=== PATIENT | female | born 1945 | race Caucasian/White ===

== ENCOUNTER 2024-01-22 07:46 | Emergency (ER) | payer OTHER ==
[~2024-01-22] VITALS: Ht 152.4 cm; Wt 49.9 kg
[~2024-01-22 07:46] MED LIST: HYDR-3917 PO; HYDR-3927 PO; ONDA-8 TL
[2024-01-22 07:55] VITALS: BP_SYST 179; PULSE 89; RESP 18; TEMP 98; O2SAT 99
[2024-01-22 08:15] LABS: BASOPHILS % (AUTO) 0.5 % (0.0-2.0); EOSINOPHILS % (AUTO) 0.5 % (0.0-4.0); HEMATOCRIT 38.5 % (36-48); HEMOGLOBIN 13.2 g/dL (12.0-16.0); LYMPHOCYTES # (AUTO) 1.2 K/uL (1.0-5.5); LYMPHOCYTES % (AUTO) 17.3 % (20.5-51.5); MEAN CORPUSCULAR HEMOGLOBIN 30 pg (27-31); MEAN CORPUSCULAR HGB CONC 34 % (32-36); MEAN CORPUSCULAR VOLUME 88 fL (79.0-98.0); MONOCYTES # (AUTO) 0.4 K/uL (0.0-1.0); MONOCYTES % (AUTO) 5.6 % (1.7-9.3); NEUTROPHILS # (AUTO) 5.2 K/uL (1.8-7.7); NEUTROPHILS % (AUTO) 76.1 % (40.0-70.0); PLATELET COUNT (AUTO) 434 K/uL (130-430); RED BLOOD CELL COUNT(AUTO) 4.39 MIL/uL (4.2-6.2); RED CELL DISTRIBUTION WIDTH 14.5 % (9.0-15.0); WHITE BLOOD COUNT (AUTO) 6.9 K/uL (4.8-10.8)
[2024-01-22 08:47] LABS: BILIRUBIN,URINE NEGATIVE (NEGATIVE); BLOOD, URINE NEGATIVE (NEGATIVE); CLARITY/URINE CLEAR (CLEAR); COLOR,URINE YELLOW (YELLOW); GLUCOSE,URINE NEGATIVE (NEGATIVE); KETONES,URINE NEGATIVE (NEGATIVE); LEUKOCYTE ESTERASE ,URINE NEGATIVE (NEGATIVE); NITRITE, URINE NEGATIVE (NEGATIVE); PH,URINE 7.5 (5.0-8.0); PROTEIN URINE 2+ (NEGATIVE); UROBILINOGEN,URINE 0.2 (0.2-1.0)
[2024-01-22 09:01] LABS: BACTERIA,URINE FEW /HPF (None Seen); RBC,URINE NONE SEEN /HPF (0-3); WBC,URINE 0-3 /HPF (0-3)
[2024-01-22 09:04] LABS: PROTHROMBIN TIME 10.6 SECS (9.5-12.5)
[2024-01-22 09:12] LABS: ALANINE AMINOTRANSFERASE 14 U/L (12-78); AMYLASE 78 U/L (0-100); ANION GAP 13 (5-15); ASPARTATE AMINOTRANSFERASE 20 U/L (10-37); BILIRUBIN,DIRECT 0.1 mg/dL (0.0-0.3); CALCIUM 9.5 mg/dL (8.4-11.0); CARBON DIOXIDE 24 mmol/L (23-29); CHLORIDE 96 mmol/L (98-107); CREATININE 1.61 mg/dL (0.55-1.30); GLUCOSE 159 mg/dL (74-106); LIPASE 12 U/L (16-77); POTASSIUM 3.2 mmol/L (3.5-5.1); SODIUM SERUM 133 mmol/L (136-145); TOTAL BILIRUBIN 0.3 mg/dL (0.0-1.0); TOTAL PROTEIN, SERUM 7.9 g/dL (6.4-8.3); UREA NITROGEN, BLOOD 17 mg/dL (8-21)
[2024-01-22 09:25] LABS: ACETONE, SERUM NEGATIVE (NEGATIVE)
[2024-01-22 10:18] VITALS: BP_SYST 179; PULSE 89; RESP 18; TEMP 98; O2SAT 99
== END 2024-01-22 10:20 | disposition home or self-care (01) ==
LOC: SED 07:46
DX: R11.2 Nausea with vomiting, unspecified (principal); Z94.4 Liver transplant status; Z79.899 Other long term (current) drug therapy
CPT/HCPCS: 36415; 80048; 80076; 81000; 81001; 81015; 82009; 82150; 83605; 83690; 85025; 85610; 85730; 99284